=== PATIENT | male | born 1990 | race Caucasian/White ===

== ENCOUNTER 2016-10-17 03:05 | Emergency (ER) | payer SELFPAY ==
[~2016-10-17] VITALS: Ht 177.8 cm; Wt 70.0 kg
[2016-10-17 03:40] VITALS: BP 123/73; PULSE 74; RESP 18; TEMP 97.9; O2SAT 99
--- NOTE | 2016-10-17 04:12 | PD ---
HPI Chief Complaint: Psychiatric Symptoms Time Seen by Provider: 04:10 Travel History International Travel<30 days: No Contact w/Intl Traveler<30days: No Traveled to known affect area: No History of Present Illness HPI Patient comes in under [place] act by police for having thoughts of suicide. Patient reports he is an alcoholic drinking at least a case of beer a day. Patient states he's been drinking heavily since he was 17. He states tonight that he feels he didn't call 911 he'd jump off a bridge to try to end his life. Patient denies any homicidal ideations. Denies any medical concerns. Denies any chest pain, shortness breath, fever, headache, abdominal pain, nausea, or vomiting. PFSH Past Medical History Medical History: Denies Significant Hx ?: Not Past Surgical History Other Surgery: Yes (3 BOWEL OBSTRUCTION) Social History Alcohol Use: Yes (DAILY DRINKER ) Tobacco Use: Yes (2 PACKS A DAY) Substance Use: Yes (WEED) Allergies-Medications (Allergen,Severity, Reaction): Coded Allergies: No Known Allergies (Unverified , 10/17/16) Reported Meds & Prescriptions Reported Meds & Active Scripts Active No Active Prescriptions or Reported Medications Review of Systems Except as stated in HPI: all other systems reviewed are Neg Physical Exam Narrative GENERAL: Well-developed, well nourished, in no acute distress, and non-ill appearing. SKIN: Warm and dry. HEAD: Atraumatic. Normocephalic. EYES: Pupils equal and round. EOMI. No scleral icterus. No injection or drainage. ENT: No nasal bleeding or discharge. Mucous membranes pink and moist. NECK: Trachea midline. No JVD. Supple. No nuclear rigidity. CARDIOVASCULAR: Regular rate and rhythm. No murmur appreciated. RESPIRATORY: No accessory muscle use. No respiratory distress. Wheezing noted throughout. Breath sounds equal bilaterally. MUSCULOSKELETAL: No obvious deformities. No clubbing. No cyanosis. No edema. Full range of motion. NEUROLOGICAL: Awake and alert. No obvious cranial nerve deficits. Motor grossly within normal limits. Normal speech. PSYCHIATRIC: Appropriate mood and affect. Data Data Last Documented VS Vital Signs Date Time Temp Pulse Resp B/P Pulse Ox O2 Delivery O2 Flow Rate FiO2 10/17/16 03:40 97.9 74 18 123/73 99 Orders Complete Blood Count With Diff (10/17/16 03:48) Comprehensive Metabolic Panel (10/17/16 03:48) Psych Screen (10/17/16 03:48) Drug Screen, Random Urine (10/17/16 03:48) Alcohol (Ethanol) (10/17/16 03:48) Salicylates (Aspirin) (10/17/16 03:48) Tylenol (Acetaminophen) (10/17/16 03:48) Alcohol Withdrawal Asmt-Ciwa ONCE (10/17/16 04:53) Flumazenil Inj (Romazicon Inj) (10/17/16 05:00) Lorazepam (Ativan) (10/17/16 05:00) Lorazepam Inj (Ativan Inj) (10/17/16 05:00) Lorazepam (Ativan) (10/17/16 05:00) Lorazepam Inj (Ativan Inj) (10/17/16 05:00) Lorazepam Inj (Ativan Inj) (10/17/16 05:00) Lorazepam Inj (Ativan Inj) (10/17/16 05:00) Labs Laboratory Tests Test 10/17/16 03:30 White Blood Count 8.0 TH/MM3 Red Blood Count 4.48 MIL/MM3 Hemoglobin 14.4 GM/DL Hematocrit 41.0 % Mean Corpuscular Volume 91.5 FL Mean Corpuscular Hemoglobin 32.1 PG Mean Corpuscular Hemoglobin 35.0 % Concent Red Cell Distribution Width 13.5 % Platelet Count 224 TH/MM3 Mean Platelet Volume 8.4 FL Neutrophils (%) (Auto) 53.5 % Lymphocytes (%) (Auto) 33.4 % Monocytes (%) (Auto) 10.0 % Eosinophils (%) (Auto) 2.3 % Basophils (%) (Auto) 0.8 % Neutrophils # (Auto) 4.3 TH/MM3 Lymphocytes # (Auto) 2.7 TH/MM3 Monocytes # (Auto) 0.8 TH/MM3 Eosinophils # (Auto) 0.2 TH/MM3 Basophils # (Auto) 0.1 TH/MM3 CBC Comment DIFF FINAL Differential Comment Sodium Level 143 MEQ/L Potassium Level 3.6 MEQ/L Chloride Level 109 MEQ/L Carbon Dioxide Level 22.1 MEQ/L Anion Gap 12 MEQ/L Blood Urea Nitrogen 9 MG/DL Creatinine 0.97 MG/DL Estimat Glomerular Filtration 95 ML/MIN Rate Random Glucose 99 MG/DL Calcium Level 8.5 MG/DL Total Bilirubin 0.6 MG/DL Aspartate Amino Transf 20 U/L (AST/SGOT) Alanine Aminotransferase 22 U/L (ALT/SGPT) Alkaline Phosphatase 70 U/L Total Protein 7.3 GM/DL Albumin 4.4 GM/DL Salicylates Level 3.2 MG/DL Acetaminophen Level LESS THAN 2.0 MCG/ML Ethyl Alcohol Level 180 MG/DL MDM Medical Decision Making Medical Screen Exam Complete: Yes Emergency Medical Condition: Yes Differential Diagnosis Homicidal, suicidal, alcohol abuse, dependence, alcohol-induced mood disorder, other Narrative Course Patient was seen and examined. Labs were obtained and reviewed. Patient medically cleared for further treatment and evaluation by psych. Final disposition per psych. Diagnosis Primary Impression: Suicidal thoughts Additional Impression: Alcohol abuse Scripts No Active Prescriptions or Reported Meds Condition: Andres De La Cruz Oct 17, 2016 04:12
[2016-10-17 04:29] LABS: ALT (GPT) 22 U/L (12-78); ANION GAP 12 MEQ/L (5-15); AST (GOT) 20 U/L (15-37); BICARBONATE 22.1 MEQ/L (21.0-32.0); BLOOD UREA NITROGEN 9 MG/DL (7-18); CHLORIDE 109 MEQ/L (98-107); GLOMERULAR FILTRATION RATE 95 ML/MIN (>89); POTASSIUM 3.6 MEQ/L (3.5-5.1); SODIUM (NA) 143 MEQ/L (136-145)
[2016-10-17 04:32] LABS: ACETAMINOPHEN LESS THAN 2.0 MCG/ML (10.0-30.0); ALKALINE PHOSPHATASE 70 U/L (45-117); TOTAL BILIRUBIN ADULT 0.6 MG/DL (0.2-1.0)
[2016-10-17 04:46] LABS: AUTOMATED NEUTROPHIL # 4.3 TH/MM3 (1.8-7.7); BASOPHIL # 0.1 TH/MM3 (0-0.2); BASOPHIL % 0.8 % (0.0-2.0); EOSINOPHIL # 0.2 TH/MM3 (0-0.4); EOSINOPHIL % 2.3 % (0.0-4.0); HEMO FLAGS DIFF FINAL; LYMPH % 33.4 % (9.0-44.0); LYMPHOCYTE # 2.7 TH/MM3 (1.0-4.8); MEAN CELL VOLUME 91.5 FL (80.0-100.0); MEAN CORPUSCULAR HEMOGLOBIN 32.1 PG (27.0-34.0); NEUT % 53.5 % (16.0-70.0); PLATELET COUNT 224 TH/MM3 (150-450); RED BLOOD COUNT 4.48 MIL/MM3 (4.50-5.90); RED CELL DISTRIBUTION WIDTH 13.5 % (11.6-17.2)
[2016-10-17] MEDS ORDERED: LORazepam 1 MG TAB PO PRN ×2 (05:00→08:00)
[2016-10-17] MEDS ORDERED: LORazepam 2 MG/ML VIAL IV PUSH PRN ×7 (05:00→08:00)
[2016-10-17] MEDS ORDERED: FLUMAZENIL 0.5 MG/5 ML VIAL IV PUSH PRN ×2 (05:00→08:00)
[2016-10-17] MEDS ORDERED: LORazepam 2 MG TAB PO PRN ×2 (05:00→08:00)
[2016-10-17] MEDS: LORazepam 2 MG/ML VIAL IV PUSH PRN ×3 (08:26→21:30)
[2016-10-17] MEDS: ONDANSETRON HCL 4 MG/2 ML VIAL IV PUSH PRN ×2 (08:26→16:16)
[2016-10-17 08:27] VITALS: BP 125/68; PULSE 65; RESP 18; TEMP 98.9; O2SAT 97
[2016-10-17 08:48] LABS: AMPHETAMINE, URINE NEG (NEG); BARBITURATES, URINE NEG (NEG); COCAINE, URINE NEG (NEG)
[2016-10-17 16:10] VITALS: BP 136/66; PULSE 61; RESP 20; O2SAT 95
[2016-10-17 22:23] VITALS: BP 139/75; PULSE 64; RESP 17; O2SAT 99
== END 2016-10-17 23:30 ==
LOC: NEPA 03:05 → NEPJ 23:30
DX: R45.851 Suicidal ideations (principal); F10.10 Alcohol abuse, uncomplicated; F17.200 Nicotine dependence, unspecified, uncomplicated
CPT/HCPCS: 80053; 80307; 85025; 96372; 96374; 96375; 96376; 99285; J2060; J2405